=== PATIENT | male | born 1985 | race Caucasian/White ===

== ENCOUNTER 2023-07-30 10:48 | Inpatient (IN) | payer SELFPAY ==
[~2023-07-30] VITALS: Ht 175.3 cm; Wt 81.6 kg
[~2023-07-30 10:48] MED LIST: INSULIN; METFORMIN; NEURONTIN
[2023-07-30 10:50] VITALS: BP_SYST 159; PULSE 98; RESP 20; TEMP 97.8; O2SAT 88
[2023-07-30 11:42] LABS: BASOPHILS # (AUTO) 0.1 K/uL (0.0-0.2); BASOPHILS % (AUTO) 0.8 % (0.0-2.0); EOSINOPHILS # (AUTO) 0.3 K/uL (0.0-0.4); EOSINOPHILS % (AUTO) 3.5 % (0.0-4.0); HEMATOCRIT 29.6 % (36-54); HEMOGLOBIN 9.4 g/dL (14.0-18.0); LYMPHOCYTES # (AUTO) 1.8 K/uL (1.0-5.5); LYMPHOCYTES % (AUTO) 19.7 % (20.5-51.5); MEAN CORPUSCULAR HEMOGLOBIN 29 pg (27-31); MEAN CORPUSCULAR HGB CONC 32 % (32-36); MEAN CORPUSCULAR VOLUME 89 fL (79.0-98.0); MONOCYTES # (AUTO) 0.6 K/uL (0.0-1.0); NEUTROPHILS # (AUTO) 6.5 K/uL (1.8-7.7); PLATELET COUNT (AUTO) 296 K/uL (130-430); RED BLOOD CELL COUNT(AUTO) 3.31 MIL/uL (4.2-6.2); RED CELL DISTRIBUTION WIDTH 15.6 % (9.0-15.0); WHITE BLOOD COUNT (AUTO) 9.3 K/uL (4.8-10.8)
[2023-07-30 11:57] LABS: PROTHROMBIN TIME 10.5 SECS (9.5-12.5)
[2023-07-30 12:04] LABS: ALANINE AMINOTRANSFERASE 28 U/L (12-78); ANION GAP 6 (5-15); ASPARTATE AMINOTRANSFERASE 20 U/L (10-37); CALCIUM 8.2 mg/dL (8.4-11.0); CARBON DIOXIDE 32 mmol/L (23-29); CHLORIDE 99 mmol/L (98-107); GFR AFRICAN AMERICAN 7 mL/min (>90); GLUCOSE 235 mg/dL (74-106); SODIUM SERUM 137 mmol/L (136-145); TOTAL BILIRUBIN 0.6 mg/dL (0.0-1.0); TOTAL PROTEIN, SERUM 6.2 g/dL (6.4-8.3); UREA NITROGEN, BLOOD 74 mg/dL (8-21)
[2023-07-30 12:05] LABS: GFR NON AFRICAN-AMERICAN 6 mL/min (>90)
[2023-07-30 12:08] LABS: POTASSIUM 5.9 mmol/L (3.5-5.1)
[2023-07-30 12:09] LABS: CREATININE 10.63 mg/dL (0.55-1.30)
[2023-07-30] MEDS ORDERED: SIMV-343 PO (14:07)
[2023-07-30] MEDS ORDERED: LISI20TA30 PO (14:07)
[2023-07-30] MEDS ORDERED: INSU100V9 SQ (14:07)
[2023-07-30] MEDS ORDERED: INSU100V8 SUBCUT (14:07)
[2023-07-30 16:30] VITALS: BP_SYST 160; PULSE 84; RESP 20; TEMP 98.2; O2SAT 90
[2023-07-30 19:30] VITALS: O2SAT 94
[2023-07-30 19:40] VITALS: BP_SYST 123; BP_SYST 165; PULSE 56; RESP 20; TEMP 97.9; O2SAT 95; O2SAT 97
[2023-07-30 23:18] VITALS: BP_SYST 156; PULSE 85; RESP 18; TEMP 98; O2SAT 97
[2023-07-31] VITALS (7 sets, daily range): BP systolic 151–165; PULSE 72–85; RESP 16–18; TEMP 97.6–98; O2SAT 96–98
[2023-07-31] MEDS ORDERED: ONDANSETRON HCL 4 MG/2 ML VIAL IVP PRN (10:30)
[2023-07-31] MEDS ORDERED: NALOXONE HCL 0.4 MG/ML AMP (NARCAN) IVP PRN ×2 (10:30)
[2023-07-31] MEDS ORDERED: LORazepam 2 MG/ML VIAL IVP PRN (10:30)
[2023-07-31] MEDS ORDERED: ACETAMINOPHEN 325 MG TABLET PO PRN ×2 (10:30→11:15)
[2023-07-31] MEDS ORDERED: HYDROcodone/ACETAMIN 5-325 MG TAB (NORCO/ VICODIN) PO PRN ×2 (10:30)
[2023-07-31] MEDS ORDERED: lisinopriL 20 MG TABLET PO ONE (11:00)
[2023-07-31 11:04] LABS: BASOPHILS # (AUTO) 0.1 K/uL (0.0-0.2); BASOPHILS % (AUTO) 0.7 % (0.0-2.0); EOSINOPHILS # (AUTO) 0.4 K/uL (0.0-0.4); EOSINOPHILS % (AUTO) 5.1 % (0.0-4.0); HEMATOCRIT 31.2 % (36-54); LYMPHOCYTES # (AUTO) 1.4 K/uL (1.0-5.5); LYMPHOCYTES % (AUTO) 19.2 % (20.5-51.5); MEAN CORPUSCULAR HEMOGLOBIN 28 pg (27-31); MEAN CORPUSCULAR HGB CONC 32 % (32-36); MEAN CORPUSCULAR VOLUME 89 fL (79.0-98.0); MONOCYTES # (AUTO) 0.5 K/uL (0.0-1.0); MONOCYTES % (AUTO) 6.6 % (1.7-9.3); NEUTROPHILS # (AUTO) 4.8 K/uL (1.8-7.7); NEUTROPHILS % (AUTO) 68.4 % (40.0-70.0); PLATELET COUNT (AUTO) 243 K/uL (130-430); RED BLOOD CELL COUNT(AUTO) 3.52 MIL/uL (4.2-6.2); RED CELL DISTRIBUTION WIDTH 15.4 % (9.0-15.0); WHITE BLOOD COUNT (AUTO) 7.1 K/uL (4.8-10.8)
[2023-07-31] MEDS ORDERED: INSULIN GLARGINE 100 UNITS/ML, 10 ML VIAL SQ ONE (11:15)
[2023-07-31 11:24] LABS: CALCIUM 8.2 mg/dL (8.4-11.0)
[2023-07-31 11:37] LABS: CREATININE 8.58 mg/dL (0.55-1.30); POTASSIUM 6.2 mmol/L (3.5-5.1)
[2023-07-31] MEDS ORDERED: SODIUM POLYSTYRENE SULFONATE 15 GM/60 ML UDBTL PO ONE (12:00)
[2023-07-31] MEDS: INSULIN REGULAR, HUMAN 100 UNITS/ML, 3 ML VIAL (humuLIN R) SUBCUT PRN ×2 (12:05→20:35)
[2023-07-31] MEDS: NORMAL SALINE 5 ML DISP.SYRIN IVF SCH ×2 (13:27→22:00)
[2023-07-31] MEDS ORDERED: hydrALAZINE HCL 25 MG TABLET PO ONE (17:15)
[2023-07-31 19:46] LABS: CALCIUM 8.4 mg/dL (8.4-11.0); CREATININE 6.21 mg/dL (0.55-1.30); POTASSIUM 3.9 mmol/L (3.5-5.1)
[2023-07-31] MEDS ORDERED: SIMVASTATIN 20 MG TABLET PO SCH (21:00)
[2023-07-31] MEDS ORDERED: HYDR-4038 PO (21:47)
[2023-07-31] MEDS ORDERED: hydrALAZINE HCL 25 MG TABLET PO SCH (22:00)
[2023-08-01] MEDS ORDERED: lisinopriL 20 MG TABLET PO SCH (09:00)
[2023-08-01] MEDS ORDERED: INSULIN GLARGINE 100 UNITS/ML, 10 ML VIAL SQ SCH (09:00)
== END 2023-07-31 23:43 | disposition home or self-care (01) | DRG 189 ==
LOC: SED 10:48 → STU 13:33
PROVIDERS: ADMIT Preventive Medicine Preventive Medicine/Occupational Environmental Medicine; ATTEND Preventive Medicine Preventive Medicine/Occupational Environmental Medicine
PROC: 5A1D70Z Performance of Urinary Filtration, Intermittent, Less than 6 Hours Per Day (ICD-10-PCS; principal; 2023-07-30)
PROC: 5A1D70Z Performance of Urinary Filtration, Intermittent, Less than 6 Hours Per Day (ICD-10-PCS; 2023-07-31)
DX: J96.00 Acute respiratory failure, unspecified whether with hypoxia or hypercapnia (principal); N18.6 End stage renal disease; I13.2 Hypertensive heart and chronic kidney disease with heart failure and with stage 5 chronic kidney disease, or end stage renal disease; N17.9 Acute kidney failure, unspecified; E44.0 Moderate protein-calorie malnutrition; Z20.822 Contact with and (suspected) exposure to COVID-19; E10.65 Type 1 diabetes mellitus with hyperglycemia; D63.8 Anemia in other chronic diseases classified elsewhere; E83.51 Hypocalcemia; E10.40 Type 1 diabetes mellitus with diabetic neuropathy, unspecified; E88.09 Other disorders of plasma-protein metabolism, not elsewhere classified; I50.9 Heart failure, unspecified; E87.5 Hyperkalemia; E10.22 Type 1 diabetes mellitus with diabetic chronic kidney disease; Z79.4 Long term (current) use of insulin; Z79.84 Long term (current) use of oral hypoglycemic drugs; Z79.899 Other long term (current) drug therapy; Z99.2 Dependence on renal dialysis; Z68.26 Body mass index [BMI] 26.0-26.9, adult
CPT/HCPCS: 36415; 71045; 80048; 80053; 82962; 83880; 84484; 85025; 85610-TC; 85730-TC; 87081; 90935; 90937; 93005; 93306; 99285; G0378